=== PATIENT | male | born 1985 ===

== ENCOUNTER → 2025-01-10 | Outpatient (REF) | payer OTHER ==
[2025-01-10 12:42] LABS: SEMEN APPEARANCE OPAQUE (OPAQUE); SEMEN VISCOSITY LIQUID (LIQUID); SEMEN VOLUME 7.4 ml (2.0-5.0); SPERM CONCENTRATION 28.6 M/ml (>=15.0); WBC CONCENTRATION <=1 M/ml (<=1 M/ml)
[2025-01-10 12:43] LABS: TOTAL PROGRESSIVE SPERM 113.7 M/Ejac.
== END ==
LOC: M LAB REF 12:36
PROVIDERS: ATTEND Obstetrics & Gynecology
DX: Z31.41 Encounter for fertility testing (principal)